=== PATIENT | male | born 1970 | race Caucasian/White ===

== ENCOUNTER 2018-04-19 18:55 | Emergency (ER) | payer OTHER ==
[2018-04-19 19:25] VITALS: BP 143/81; PULSE 71; TEMP 98.1; BMI 44.3
--- NOTE | 2018-04-19 19:27 | PDOC ---
History of Present Illness - General Chief Complaint: Pain Stated Complaint: LT LEG PAIN Time Seen by Provider: 04/19/18 19:26 History Source: Patient, Spouse ( present for interview) Exam Limitations: No Limitations - History of Present Illness Initial Comments: 47 y/o male presenting to [facility] ER via private auto complaining of lower left extremity pain since approx. 09:30 this morning (19 Apr 2018). Pain starts at the upper posterior aspect of the left leg and radiates to lower part of extremity and occasionally into lower abdomen. Started spontaneously at work. Made worse by walking and standing. Reports paresthesia with prolonged standing or walking. Made better by laying down. Denies history of similar. No trauma to extremity or lower back. No loss of bowel or bladder. No saddle anesthesia. No recent periods of immobilization, recent surgeries, h/o of clotting disorders. No urinary symptoms, testicular pain, or penile discharge. PCP: Dr. 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 Medical Hx: - DAGO - Tinnitus Surgical Hx: - No previous surgeries Past History - Past Medical History Allergies/Adverse Reactions: Allergies Allergy/AdvReac Type Severity Reaction Status Date / Time No Known Allergies Allergy Verified 04/19/18 19:24 Home Medications: Ambulatory Orders Baclofen 5 mg PO TID PRN #21 tablet 04/19/18 Naproxen [Naprosyn -] 500 mg PO BID PRN 7 Days #14 tablet 04/19/18 COPD: No - Suicide/Smoking/Psychosocial Hx Smoking History: Never smoked Have you smoked in the past 12 months: No Information on smoking cessation initiated: No Hx Alcohol Use: No Drug/Substance Use Hx: No Substance Use Type: None Review of Systems - Review of Systems Able to Perform ROS?: Yes Comments:: In addition to that documented in the HPI above, the additional ROS was obtained : Constitutional: Denies fevers or chills Eyes: Denies vision changes ENMT: Denies sore throat CV: Denies chest pain Resp: Denies SOB GI: Denies vomiting or diarrhea *Physical Exam - Vital Signs Last Vital Signs Temp Pulse Resp BP Pulse Ox 98.1 F 71 18 143/81 100 04/19/18 19:22 04/19/18 19:22 04/19/18 19:22 04/19/18 19:22 04/19/18 19:22 - Physical Exam Comments: Constitutional: Well-developed, well-nourished, obese male in no acute distress or obvious discomfort. Found semi-fowlers in hospital bed. Alert and oriented x4. Answered all questions appropriately and completely. Speech was non-labored , non-pressured. HEENT: Normocephalic. No obvious external signs of trauma. Hearing grossly normal. No nasal discharge. Neck is supple, trachea is midline. Cardiovascular: Regular rate and regular rhythm. No murmur, rubs, clicks, or gallops. Peripheral pulses: Radial pulses full. Respiratory: Breathing unlabored. Equal chest rise and fall. Clear to auscultation bilaterally. No stridor, no wheezing, no rhonchi. Gastrointestinal: abdomen is soft, non-tender, non-distended.No pulsatile masses. No overlying skin lesions or obvious signs of trauma. Neuro: Alert and oriented. Moving all four extremities spontaneously.Intact sensation to all four extremities. 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 Plantar flexion and dorsiflexion 5/5. Left leg positive straight leg test, subjective pain at approx. 70 degrees. Skin/MSK: Warm, dry, and intact. No bruising, rashes, or signs of trauma to lower extremities, lower back, or abdomen. No focal point tenderness on left leg. Psych: Affect: appropriate. Mood: normal. Medical Decision Making - Medical Decision Making *Reviewed vital signs, nursing notes, and prior visit documentation (if available). 47 y/o male complaining of pain to posterior aspect of lower left extremity. Worse with standing and movement. Occasionally progressing to paresthesias. No red flags for Cauda Equina or DVT reported. Afebrile. Vitals unremarkable for hypotension or tachycardia. Straight leg test positive on physical exam. Suspect acute lumbosacral radiculopathy. Will obtain plain films of lumbosacral spine. Ordered Naproxen and Robaxin for symptom relief. No acute process revealed on plain films per ED attending wet read. Awaiting radiology report. Pt reports pain has improved after medication administration. Discussed imaging results with pt. Answered all questions. Provided return precautions. Pt expressed verbal understanding and agreement with plan to discharge home with outpatient follow up. Provided neurosurgery referral. *DC/Admit/Observation/Transfer Diagnosis at time of Disposition: Left leg pain - Discharge Dispostion Disposition: HOME Condition at time of disposition: Stable Decision to Admit order: No - Prescriptions Prescriptions: Baclofen 5 mg PO TID PRN #21 tablet PRN Reason: Pain Naproxen [Naprosyn -] 500 mg PO BID PRN 7 Days #14 tablet PRN Reason: Pain - Referrals Referrals: Vick Simon MD [Primary Care Provider] - Nakul Bustillos MD, FAANS [Staff Physician] - - Patient Instructions Printed Discharge Instructions: DI for Sciatica, DI for Lumbar Radiculopathy Additional Instructions: Your leg pain is likely being caused by Sciatica, which is a pinched nerve in your back. The pain may subside over the next few days. I have sent a prescription for a muscle relaxer called Baclofen and a pain medication called Naproxen. Take these medications as directed on the package insert. Do not take more than the recommended dose. You should follow up with a neurosurgeon for further evaluation. I have placed a referral for you to see Dr. Nakul Bustillos. You will need to call to make an appointment. You can also follow up with your primary care doctor for additional recommendations. Go to the nearest emergency department if your condition worsens or you feel like you need additional emergency evaluation. Print Language: NEPALESE - Post Discharge Activity Forms/Work/School Notes: Back to Work
[2018-04-19] MEDS ORDERED: NAPROXEN 500 MG TABLET (FP) PO ONE (19:57)
[2018-04-19] MEDS ORDERED: METHOCARBAMOL 500 MG TABLET PO ONE (19:57)
--- NOTE | 2018-04-19 20:13 | PDOC ---
Attending Attestation - Resident Resident Name: Yemi Yancey - ED Attending Attestation I have performed the following: I have examined & evaluated the patient, The case was reviewed & discussed with the resident, I agree w/resident's findings & plan - Medical Decision Making 04/19/18 21:57 Pt has loss of lumbar lordosis, likely due to muscle spasm. He will be sent home with the robaxin and the naproxin. 04/19/18 22:28 Pt feels improved with naproxen and muscle relaxant. We will send him home with the same. <Cynthia Roach - Last Filed: 04/19/18 22:27> - HPI HPI: 04/19/18 21:29 The patient is a 47 year old male with a significant PMH of sleep apnea who presents to the emergency department with lower left extremity pain since earlier today. The patient reports that he was at work earlier this morning when he experienced a sudden onset of lower left left pain. He states that his left leg pain radiates to his upper leg and is worsened with walking and standing. 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 He reports that his leg pain is relieved with laying down. The patient denies any history of clotting, immobilization, or surgeries. He denies any other symptoms. He denies and weakness, numbness or tingling sensation. He denies any fever, chills , nausea, vomiting, diarrhea, constipation or urinary symptoms. He denies any chest pain, shortness of breath, headache or dizziness. The patient denies any other complaints. PCP: Dr. Lane Documentation prepared by Nevin Naranjo, acting as expert medical writer for Cynthia Roach MD. - Physicial Exam PE: 04/19/18 22:35 GENERAL: Awake, alert, and fully oriented, in no acute distress HEAD: No signs of trauma EYES: PERRLA, EOMI, sclera anicteric, conjunctiva clear ENT: Auricles normal inspection, hearing grossly normal, nares patent, oropharynx clear without exudates. Moist mucosa NECK: Normal ROM, supple, no lymphadenopathy, JVD, or masses LUNGS: Breath sounds equal, clear to auscultation bilaterally. No wheezes, and no crackles HEART: Regular rate and rhythm, normal S1 and S2, no murmurs, rubs or gallops ABDOMEN: Soft, nontender, normoactive bowel sounds. No guarding, no rebound. No masses EXTREMITIES: (+)minimal lower back tenderness, left buttock tenderness, positive left leg raise. Normal range of motion, no edema. No clubbing or cyanosis. No cords, erythema, or tenderness NEUROLOGICAL: Cranial nerves II through XII grossly intact. Normal speech, normal gait SKIN: Warm, Dry, normal turgor, no rashes or lesions noted. <Nevin Naranjo - Last Filed: 04/19/18 22:35>
[2018-04-19] MEDS ORDERED: METHOCARBAMOL 500 MG TABLET ONE (20:30)
[2018-04-19] MEDS ORDERED: NAPROXEN 500 MG TABLET (FP) ONE (20:30)
== END 2018-04-19 23:22 | disposition home or self-care (01) ==
LOC: JER 18:55
DX: M54.32 Sciatica, left side (principal); G47.33 Obstructive sleep apnea (adult) (pediatric)
CPT/HCPCS: 72100-TC-FY; 99282-25